=== PATIENT | male | born 1965 | race Caucasian/White ===

== ENCOUNTER 2019-07-24 10:10 | Emergency (ER) | payer SELFPAY ==
[~2019-07-24] VITALS: Ht 177.8 cm; Wt 91.8 kg
[2019-07-24 10:14] VITALS: BP 149/98
== END 2019-07-24 11:38 | disposition home or self-care (01) ==
LOC: ED 10:28
DX: J06.9 Acute upper respiratory infection, unspecified (principal)
CPT/HCPCS: 71045; 99283